=== PATIENT | male | born 1990 | race Caucasian/White ===

== ENCOUNTER 2017-02-23 10:24 | Emergency (ER) | payer OTHER ==
[~2017-02-23] VITALS: Ht 182.9 cm; Wt 165.5 kg
[~2017-02-23 10:24] MED LIST: AMLODIPINE BESY10 MG PO; AMLODIPINE BESYL5 MG PO; BENICAR20 MG PO; FLOMAX0.4 MG PO; HYZAAR 100-11 TABLET PO; LOSARTAN-HCTZ1 EACH PO; PANTOPRAZOLE SO40 MG PO; PERCOCET 5/31 TABLET PO; TOPAMAX25 MG PO; ZOFRAN4 MG PO; [UNRECOGNIZED DRUG - REMARK]
[2017-02-23 12:25] LABS: HEMATOCRIT 47.3 % (38.0-50.0); MCH 29.1 PG (29.0-34.0); MCHC 33.2 G/DL (30.0-36.0); MCV 87.6 FL (86-99); MEAN PLAT.VOLUME 10.5 uM^3 (9.0-12.4); PLATELET COUNT 241 K/uL (156-360); RBC DIS.WIDTH-CV 12.9 % (11.8-14.6); RBC DIS.WIDTH-SD 41.2 % (39-53); WHITE BLOOD COUNT 10.3 K/uL (4.1-10.2)
[2017-02-23 12:31] LABS: CHLORIDE 105 mEq/L (99-109); POTASSIUM 4.3 mEq/L (3.7-5.4)
[2017-02-23 12:32] LABS: SODIUM 140 mEq/L (136-147)
[2017-02-23 12:34] LABS: GLUCOSE 106 mg/dL (70-99)
[2017-02-23 12:35] LABS: ANION GAP 10 MEQ/L (2-14)
[2017-02-23 12:36] LABS: TOTAL BILIRUBIN 0.7 mg/dL (0.0-1.0)
[2017-02-23 12:37] LABS: ALKALINE PHOSPHATASE 66 IU/L (3-129); GFR ESTIMATE (CALCULATED) > 59 mL/min/
[2017-02-23 12:39] LABS: UREA NITROGEN (BUN) 12 mg/dL (9-23)
[2017-02-23 12:41] LABS: LIPASE 8 U/L (1.0-51.0)
[2017-02-23] MEDS ORDERED: AMLODIPINE BESYL5 MG PO (13:36)
[2017-02-23] MEDS ORDERED: LOSARTAN POTAS100 MG PO (13:36)
[2017-02-23 17:33] LABS: ADD MIUA? YES; BILIRUBIN NEGATIVE; BLOOD NEGATIVE; COLOR YELLOW ((YELLOW)); GLUCOSE (STRIP) NEGATIVE; KETONES 5; LEUKOCYTES NEGATIVE; NITRITE NEGATIVE; PROTEIN (STRIP) NEGATIVE; UROBILINOGEN 0.2 MG/DL (0.2-1.0)
[2017-02-23 17:47] LABS: BACTERIA NONE SEEN /HPF; EPITHELIAL CELLS NONE SEEN /HPF; HYALINE CASTS 0-5 /LPF; MUCUS 3+ /LPF; RED BLOOD CELLS 0-5 /HPF (0-5); UCUL ADDED? NO; WHITE BLOOD CELLS 0-5 /HPF (0-5)
[2017-02-23 18:11] VITALS: BP 125/72
[2017-02-23 18:20] VITALS: BP 125/72
[2017-02-23 20:16] VITALS: BP 119/71
[2017-02-24 02:11] VITALS: BP 116/65
[2017-02-24 03:43] VITALS: BP 96/59
[2017-02-24 10:49] VITALS: BP 137/76
[2017-02-24] MEDS ORDERED: NORCO 5/3251 TABLET PO (11:21)
== END 2017-02-24 16:31 | disposition home or self-care (01) ==
LOC: EME 10:24 → EXP 10:24 → EDOF 15:57 → 3EAST 15:57 → EDOF 15:57 → 3EAST 17:50
PROC: 0WJP4ZZ Inspection of Gastrointestinal Tract, Percutaneous Endoscopic Approach (ICD-10-PCS; principal; 2017-02-23)
DX: K56.69 Other intestinal obstruction (principal); I10 Essential (primary) hypertension; E66.01 Morbid (severe) obesity due to excess calories; Z68.42 Body mass index [BMI] 45.0-49.9, adult; Z87.442 Personal history of urinary calculi
CPT/HCPCS: 74000; 80053; 81003; 83690; 85027; 87070; 87075; 87205; 99281; 99285; G0378; J1170; J1650; J2060; J2250; J2270; J2405; J2710; J3010; J3480; J7030; J7120; S0030

== ENCOUNTER 2017-09-06 12:54 | Emergency (ER) | payer OTHER ==
[~2017-09-06] VITALS: Ht 182.9 cm; Wt 164.6 kg
[~2017-09-06 12:54] MED LIST changes: +LOSARTAN POTAS100 MG PO; +NORCO 5/3251 TABLET PO
[2017-09-06 13:51] LABS: APPEARANCE SL.HAZY ((CLEAR)); BILIRUBIN NEGATIVE; BLOOD NEGATIVE; COLOR YELLOW ((YELLOW)); GLUCOSE (STRIP) NEGATIVE; KETONES NEGATIVE; LEUKOCYTES NEGATIVE; NITRITE NEGATIVE; PROTEIN (STRIP) 30; SPECIFIC GRAVITY 1.034 (1.000-1.030)
[2017-09-06 14:05] LABS: BACTERIA NONE SEEN /HPF; EPITHELIAL CELLS NONE SEEN /HPF; MUCUS 4+ /LPF; RED BLOOD CELLS 0-5 /HPF (0-5); UCUL ADDED? NO; WHITE BLOOD CELLS 0-5 /HPF (0-5)
[2017-09-06 14:19] LABS: HEMATOCRIT 49.4 % (38.0-50.0); HEMOGLOBIN 16.5 G/DL (12.5-16.6); MCH 29.3 PG (29.0-34.0); MCHC 33.4 G/DL (30.0-36.0); MCV 87.7 FL (86-99); PLATELET COUNT 243 K/uL (156-360); RBC DIS.WIDTH-CV 12.9 % (11.8-14.6); RED BLOOD COUNT 5.63 M/uL (4.00-5.50); WHITE BLOOD COUNT 9.8 K/uL (4.1-10.2)
[2017-09-06 14:26] LABS: ALBUMIN 4.2 g/dL (3.2-4.8)
[2017-09-06 14:27] LABS: CHLORIDE 106 mEq/L (99-109); POTASSIUM 3.9 mEq/L (3.7-5.4); SODIUM 142 mEq/L (136-147)
[2017-09-06 14:29] LABS: GLUCOSE 122 mg/dL (70-99); TOTAL PROTEIN 8.2 g/dL (6.4-8.3)
[2017-09-06 14:31] LABS: TOTAL BILIRUBIN 0.8 mg/dL (0.0-1.0)
[2017-09-06 14:32] LABS: ALKALINE PHOSPHATASE 67 IU/L (3-129)
[2017-09-06 14:33] LABS: CREATININE 0.8 mg/dL (0.6-1.3); GFR ESTIMATE (CALCULATED) > 59 mL/min/ (58.99-99999)
[2017-09-06 14:34] LABS: AST (GOT) 24 IU/L (2-34); UREA NITROGEN (BUN) 17 mg/dL (9-23)
[2017-09-06 14:36] LABS: ALT (GPT) 44 IU/L (3-49)
[2017-09-06] MEDS ORDERED: ZOFRAN4 MG PO (20:40)
[2017-09-06 21:12] VITALS: BP 159/98
== END 2017-09-06 21:14 | disposition left against medical advice (07) ==
LOC: EME 12:54
DX: K56.600 Partial intestinal obstruction, unspecified as to cause (principal); K76.0 Fatty (change of) liver, not elsewhere classified; E66.01 Morbid (severe) obesity due to excess calories; Z68.42 Body mass index [BMI] 45.0-49.9, adult; I10 Essential (primary) hypertension; Z87.442 Personal history of urinary calculi; Z53.20 Procedure and treatment not carried out because of patient's decision for unspecified reasons
CPT/HCPCS: 74177; 80053; 81003; 85027; 99281; 99285; J2270; J2405; J7030

== ENCOUNTER → 2017-12-02 | Outpatient (CLI) | payer OTHER ==
[~2017-12-02] VITALS: Ht 182.9 cm; Wt 158.7 kg
[~2017-12-02] MED LIST changes: +MULTI-VITAMIN1 EAC3 PO; +WELLBUTRIN75 MG PO
== END | disposition home or self-care (01) ==
LOC: AMB 10-28 13:30
DX: K31.7 Polyp of stomach and duodenum (principal); K21.9 Gastro-esophageal reflux disease without esophagitis; K29.70 Gastritis, unspecified, without bleeding; R19.7 Diarrhea, unspecified; K64.8 Other hemorrhoids; Z87.19 Personal history of other diseases of the digestive system; I10 Essential (primary) hypertension; E66.3 Overweight; Z68.42 Body mass index [BMI] 45.0-49.9, adult; F32.9 Major depressive disorder, single episode, unspecified
CPT/HCPCS: 88305; 88342 TC; 93005; J2250